=== PATIENT | male | born 1990 | race Caucasian/White ===

== ENCOUNTER → 2018-08-06 | Outpatient (CLI) | payer OTHER ==
--- NOTE | 2018-08-06 10:29 | Diagnostic Imaging Report ---
PROCEDURE: MR imaging cervical spine without contrast. TECHNIQUE: Multiplanar, multisequence MR imaging of the cervical spine was performed without contrast. INDICATION: Neck pain radiating to left upper extremity. COMPARISON: None. FINDINGS: Normal alignment. Vertebral body heights preserved. Normal bone marrow signal. No abnormal signal in the cervical spinal cord. The visualized paravertebral soft tissues are unremarkable. At C5-C6, there is a left paracentral disc protrusion which results in [id number] left neural foraminal narrowing and mild spinal canal narrowing. At C6-C7, there is a large left paracentral disc extrusion which completely effaces the left neural foramen and results in moderate spinal canal narrowing. The remaining intervertebral discs are well-preserved. No other neural impingement. IMPRESSION: 1. 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 2. Left paracentral disc protrusion at C5-C6 results in [id number] left neural foraminal narrowing and mild spinal canal narrowing. 3. No acute osseous findings. 4. No abnormal signal in the cervical spinal cord. Dictated by: Dictated on workstation # [id number]
== END ==
LOC: RAD 08:32
PROVIDERS: ATTEND Orthopaedic Surgery
DX: M48.02 Spinal stenosis, cervical region (principal); M50.123 Cervical disc disorder at C6-C7 level with radiculopathy; M50.122 Cervical disc disorder at C5-C6 level with radiculopathy
CPT/HCPCS: 72141